=== PATIENT | female | born 1990 | race Caucasian/White ===

== ENCOUNTER 2017-09-18 12:24 | Emergency (ER) | payer BC, OTHER ==
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
[2017-09-18] MEDS ORDERED: IBUPROFEN 600 MG TAB PO ONE (13:33)
[2017-09-18 14:31] VITALS: BP 95/65
== END 2017-09-18 14:29 | disposition home or self-care (01) ==
DX: S06.0X0A Concussion without loss of consciousness, initial encounter (principal); S16.1XXA Strain of muscle, fascia and tendon at neck level, initial encounter; S39.012A Strain of muscle, fascia and tendon of lower back, initial encounter; V49.40XA Driver injured in collision with unspecified motor vehicles in traffic accident, initial encounter; Y92.410 Unspecified street and highway as the place of occurrence of the external cause; Y99.8 Other external cause status; Y93.89 Activity, other specified